=== PATIENT | female | born 1940 | race Caucasian/White ===

== ENCOUNTER 2018-01-07 23:31 | Emergency (ER) | payer MEDICARE, MEDICAID, SELFPAY ==
[2018-01-08] MEDS ORDERED: Sodium Chloride 0.9% 1,000 ML IV SCH (00:15)
--- NOTE | 2018-01-08 00:23 | EDM.PDOC ---
ED HPI GENERAL MEDICAL PROBLEM - General Chief Complaint: Gastrointestinal Problem Stated Complaint: DIFFICULTY BREATHING RIGHT LEG STINTS END OF OCTOBER Time Seen by Provider: 01/08/18 00:11 Source of Information: Reports: Patient History Limitations: Reports: No Limitations - History of Present Illness INITIAL COMMENTS - FREE TEXT/NARRATIVE: 77-year-old female presents to the ED due to difficulty swallowing. 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 She is not generating any saliva to aid her swallowing reflex. She complains of subjective sensation of shortness of breath. She is vague about any central chest pressure pain discomfort. She is currently on Plavix daily after having his multiple stents placed in her right leg including the posterior tibial artery to try and improve blood flow to her right leg which was was dealt developing gangrene of the toes. Patient has bilateral iliac and femoral stents as well. I.e. she has severe peripheral vascular disease and generalized atherosclerotic disease make her risk of myocardial infarction. 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 Still be contributing to dryness of her mouth. She has morphine tablets to use as well but hardly ever takes one. She states water does go down and does not seem to be getting stuck. She states she does have to watch very closely what she eats and the size of the food particles as they will get stuck in her food pipe otherwise. She does get occasional reflux symptoms. Onset: Gradual (Just worse today.) Duration: Chronic Location: Reports: Other (Trouble swallowing a subjective sensation of dyspnea.) Quality: Reports: Other (Trouble swallowing not able to make any saliva. Has severe scleroderma and seek syndrome) Severity: Moderate Improves with: Reports: None Worsens with: Reports: Other (Trying to swallow without water in her mouth.) Context: Denies: Activity, Exercise, Lifting, Sick Contact, Trauma, Other Associated Symptoms: Reports: Malaise, Shortness of Breath (Subjective shortness of breath but sats are 98-99% on room air.). 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: Other (see below) (Only her normal medications) - Related Data Allergies Allergy/AdvReac Type Severity Reaction Status Date / Time No Known Allergies Allergy Verified 01/07/18 23:52 Past Medical History HEENT History: Reports: Impaired Vision Other HEENT History: Wears glasses Cardiovascular History: Reports: Arrhythmia, Heart Failure, Heart Murmur Gastrointestinal History: Reports: Diverticulosis 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 Diagnosed at age 50) Dermatologic History: Reports: Scleroderma - Past Surgical History Musculoskeletal Surgical History: Reports: Amputation Social & Family History - Living Situation & Occupation Living situation: Reports: Single, , Alone Occupation: Retired ED ROS GENERAL - Review of Systems Review Of Systems: See Below Constitutional: Reports: Decreased Appetite, Other (Primary problem is difficulty swallowing.). 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 Denies: Hearing Loss, Nosebleed, Rhinitis, Sinus Problem, Throat Pain, Throat Swelling, Vertigo Respiratory: Reports: Shortness of Breath. Denies: Wheezing, Pleuritic Chest Pain, Cough, Sputum, Hemoptysis, Other Cardiovascular: Reports: Blood Pressure Problem, Dyspnea on Exertion, Other ( Has severe peripheral vascular disease.). Denies: Chest Pain (Seems to be more of a subjective shortness of breath.), Claudication, Edema, Lightheadedness, Orthopnea (Has systolic hypertension), Palpitations Endocrine: Reports: Fatigue GI/Abdominal: Reports: Other (Difficulty swallowing due to scleroderma involvement of her esophagus. She also has for the most part chronic loose stools or diarrhea. At present she is experiencing some degree of constipation likely from using Percocet tablets for pain in her foot.) : Reports: Frequency Musculoskeletal: Reports: Back Pain, Joint Pain (Knees hips low back and neck at times) Skin: Reports: Other (Scleroderma symptoms i.e. thickening of the skin particularly of her chin appreciated) Neurological: Reports: No Symptoms Psychiatric: Reports: No Symptoms ED EXAM, GI/ABD - Physical Exam Exam: See Below Exam Limited By: No Limitations General Appearance: Alert, WD/WN, Anxious (Moderately anxious.) Eyes: Bilateral: Normal Appearance Throat/Mouth: Normal Inspection, Normal Lips, Normal Teeth, Normal Oropharynx Head: Atraumatic, Normocephalic Neck: Supple, Non-Tender, Limited Range of Motion (Loss of ability to fully extend her neck), Other (Does have thickening of the skin over her chin and upper anterior neck particular submandibular area.). No: Lymphadenopathy (L), Lymphadenopathy (R) Respiratory/Chest: Lungs Clear (Mild tachypnea at rest 18/m. O2 sats are 90-99% on room air.), Normal Breath Sounds, No Accessory Muscle Use, Respiratory Distress Cardiovascular: Regular Rate, Rhythm, No Edema, No Gallop, Systolic Murmur (She has a grade 3 pansystolic ejection murmur best heard at the left lower sternal border compatible with aortic stenosis. She has a second murmur that radiates towards the left axilla compatible with mitral insufficiency graded at 2-3 out of 6.). No: Normal Peripheral Pulses GI/Abdominal Exam: Normal Bowel Sounds, Soft, Non-Tender, No Organomegaly, No Mass Back Exam: Other (Mild kyphosis thoracic spine) Extremities: Normal Range of Motion, Other (Missing second toe right foot. Both feet are very cool to touch. There are also very tender to touch. 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.) Psychiatric: Anxious Skin Exam: Warm, Dry, Intact, Normal Color, No Rash Course - Vital Signs Last Recorded V/S: Last Vital Signs Temp 36.6 C 01/07/18 23:52 Pulse 95 01/07/18 23:52 Resp 18 01/07/18 23:52 BP 171/52 H 01/07/18 23:52 Pulse Ox 98 01/07/18 23:52 - Orders/Labs/Meds Orders: Active Orders 24 hr Category Date Time Status Chest 1V Frontal [CR] Stat Exams 01/08/18 00:12 Taken Sodium Chloride 0.9% [Normal Saline] 1,000 ml Med 01/08/18 00:15 Active IV ASDIRECTED Medication Orders Sodium Chloride (Normal Saline) 1,000 mls @ 500 mls/hr IV ASDIRECTED MONALISA Last Admin: 01/08/18 00:36 Dose: 500 mls/hr Labs: Laboratory Tests 01/08/18 01/08/18 01/08/18 Range/Units 00:27 00:27 00:27 WBC 6.06 (3.98-10.04) K/mm3 RBC 4.63 (3.98-5.22) M/mm3 Hgb 13.5 (11.2-15.7) gm/L Hct 42.6 (34.1-44.9) % MCV 92.0 (79.4-94.8) fl MCH 29.2 (25.6-32.2) pg MCHC 31.7 L (32.2-35.5) g/dl RDW Std Deviation 52.5 H (36.4-46.3) fL Plt Count 212 (182-369) K/mm3 MPV 10.8 (9.4-12.3) fl Neutrophils % (Manual) 73 H (40-60) % Band Neutrophils % 1 (0-10) % Lymphocytes % (Manual) 21 (20-40) % Atypical Lymphs % 0 % Monocytes % (Manual) 3 (2-10) % Eosinophils % (Manual) 2 (0.7-5.8) % Basophils % (Manual) 0 L (0.1-1.2) Platelet Estimate Adequate RBC Morph Comment Normal Sodium 141 (136-145) mEq/L Potassium 3.8 (3.5-5.1) mEq/L Chloride 103 (98-107) mEq/L Carbon Dioxide 25 (21-32) mEq/L Anion Gap 16.8 H (5-15) BUN 14 (7-18) mg/dL Creatinine 1.0 (0.55-1.02) mg/dL Est Cr Clr Drug Dosing 34.91 mL/min Estimated GFR (MDRD) 54 (>60) mL/min BUN/Creatinine Ratio 14.0 (14-18) Glucose 168 H (83-115) mg/dL Calcium 9.9 (8.5-10.1) mg/dL Magnesium 2.0 (1.8-2.4) mg/dl Total Bilirubin 0.4 (0.2-1.0) mg/dL AST 25 (15-37) U/L ALT 19 (14-59) U/L Alkaline Phosphatase 86 (46-116) U/L CK-MB (CK-2) 29.8 H (0-3.6) ng/ml Troponin I < 0.017 (0.00-0.056) ng/mL NT-Pro-B Natriuret Pep 303 (0-450) pg/mL Total Protein 8.1 (6.4-8.2) g/dl Albumin 3.9 (3.4-5.0) g/dl Globulin 4.2 gm/dL Albumin/Globulin Ratio 0.9 L (1-2) Meds: Medications Generic Name Dose Route Start Last Admin Trade Name Freq PRN Reason Stop Dose Admin Sodium Chloride 1,000 mls @ 500 mls/hr 01/08/18 00:15 01/08/18 00:36 Normal Saline IV 500 mls/hr ASDIRECTED [facility] Administration - Radiology Interpretation Free Text/Narrative:: 77-year-old female presents to the ED with a primary complaint of subjective dyspnea and difficulty swallowing. Patient has scleroderma since age 50. She is showing signs of thickening of her chin and undersurface of the chin and has esophageal involvement by history alone with food getting stuck intermittently. She has a ialogogue at home but does not find it helpful. She finds herself constantly sipping water to try and aid swallowing. Again subjective sense of dyspnea but O2 sats are 98-99% on room air with respiratory of 16-18/m. Lungs are clear to auscultation. Is no doubt that she would have atherosclerotic disease involving her heart. She does not have any carotid bruits. She has severe valvular heart disease however clinically with grade 3/6 pansystolic murmur at the left sternal border compatible with aortic stenosis and second murmur referred to the left axilla suggestive of mitral insufficiency. Lungs sound clear and there is no subjective evidence of acute pulmonary edema. Plan chest x-ray to be done with routine labs. I'm going to give her normal saline 500 mils per hour IV to see if this alleviates some of her difficulty swallowing due to lack of ability to make saliva. - Re-Assessments/Exams Free Text/Narrative Re-Assessment/Exam: 01/08/18 01:04 portable chest x-ray is completely normal. Normal cardiac silhouette clear lung alexander. 01/08/18 01:29 Labs are back and reveal a normal white count at 6.06. She has 73 % neutrophils and 1% bands reported. Hemoglobin is 13.5 with hematocrit of 42.6. Platelet count is normal at 212,000. Sodium is 141 with a potassium of 3.8. Toward is 103 with a bicarbonate 25. Anion gap is mildly elevated at 16.8. BUN is 14 with a creatinine of 1.0. EGFR is 54. Glucose is 168. Calcium is 9.9. Magnesium is normal at 2.0. Liver function is normal. CK-MB fraction is markedly elevated at 29.8. Troponin I is less than 0.017. BNP is 303. Prominent are are labs up to 450. 01/08/18 01:47 Patient and daughter reassured about the findings of the labs. There is no evidence of congestive heart failure or coronary disease to account for her dyspnea which I believe is subjective. Chest such as dry mouth that she gets a sensation that she can't swallow and she associates this with shortness of breath. We have given her [place] lozenges to suck on and she thinks this may be helping somewhat. I'm going to complete a liter of IV fluids to see if this will alleviate some of her dry mouth as well. She is using increased doses of Percocet for leg pain yesterday which may be contributing to xerostomia as well. In the old days previous to use treatment of erythromycin 3 or 4 times a day to try and improve esophageal motility and this is perhaps something to be considered in the future. In the meantime I will place her in the direction of Xylitol agents --which are [id number]. I know there is a new one on the market but I can't remember the name. 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 This creates xerostomia which is severe dry mouth secondary to inability to make normal amounts of saliva. It is aggravated by medicine such as pain medicines that cut down on the ability to make saliva. You were checked out thoroughly in the emergency department make sure there was no involvement of your heart or evidence of heart failure to cause you to feel like he could not get a normal breath. X-ray was normal and labs revealed no evidence of heart or lung related illness. Primary problem is lack of ability to make saliva which makes it very difficult to try and swallow. You were treated with a liter of IV fluids in the ED hoping that this may improve your hydration status and able to make a little more saliva . The only other treatment options are medications containing Xylitol-- these medicines creates a lubricant for the mouth and try to help alleviate trouble swallowing. These medications are [id number] and should be available at any pharmacy or [facility]. - My Orders Last 24 Hours: My Active Orders 01/08/18 00:12 Chest 1V Frontal [CR] Stat 01/08/18 00:15 Sodium Chloride 0.9% [Normal Saline] 1,000 ml IV ASDIRECTED - Assessment/Plan Last 24 Hours: My Active Orders 01/08/18 00:12 Chest 1V Frontal [CR] Stat 01/08/18 00:15 Sodium Chloride 0.9% [Normal Saline] 1,000 ml IV ASDIRECTED
--- NOTE | 2018-01-10 06:52 | CR ---
Chest: Portable view of the chest was obtained. Comparison: Prior chest x-ray of 02/18/10. Heart is enlarged but felt to be accentuated from portable technique. Tortuous thoracic aorta is seen. Lungs are clear without acute parenchymal densities. Bony structures appear within normal limits for age. Impression: 1. Nothing acute is appreciated on portable chest x-ray. Diagnostic code #2
== END 2018-01-08 02:30 | disposition home or self-care (01) ==
LOC: JD.ED 23:31
DX: L94.0 Localized scleroderma [morphea] (principal); K11.7 Disturbances of salivary secretion; I10 Essential (primary) hypertension; E11.9 Type 2 diabetes mellitus without complications; Z95.5 Presence of coronary angioplasty implant and graft
CPT/HCPCS: 36415; 71045; 80053; 82553; 83735; 83880; 84484; 85007; 85027; 96360; 96361; 99284; J7040

== ENCOUNTER 2018-02-12 18:51 | Emergency (ER) | payer MEDICARE, MEDICAID, SELFPAY ==
[2018-02-12] MEDS ORDERED: Ondansetron 4 MG/2 ML SDV IVPUSH ONE (19:29)
[2018-02-12] MEDS ORDERED: HYDROmorphone 0.5 MG/0.5 ML SYRINGE IVPUSH ONE (19:29)
[2018-02-12] MEDS ORDERED: Dextrose 5%-0.9% NaCl 1,000 ML IV SCH (19:30)
--- NOTE | 2018-02-12 19:32 | EDM.PDOC ---
ED HPI GENERAL MEDICAL PROBLEM - General Chief Complaint: Respiratory Problem Stated Complaint: ISSUES WITH BREATHING WHEN SWALLOWING Time Seen by Provider: 02/12/18 19:27 Source of Information: Reports: Patient History Limitations: Reports: No Limitations - History of Present Illness INITIAL COMMENTS - FREE TEXT/NARRATIVE: 77-year-old female presents to the ED primarily because of xerostomia and difficulty swallowing. Feels like it's catching in the suprasternal notch area. 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 She has severe peripheral vascular disease and recently underwent stenting in her femoral artery as well as stenting in the popliteal artery and I believe a small stent placed in the posterior tibial artery to try and improve blood supply to her right foot which was showing signs of gangrene. She has had her great toe removed completely in 2 weeks ago they reoperated on the area and cleaned up the anastomosis site because it wasn't healing. It is currently being treated with a dry dressing daily or nurse. She has no fever or chills. She unfortunately has required increased dose of her morphine which is MS Contin twice daily every 12 hours. She is also using OxyContin 5/3/25 milligram tabs every 4 hours for pain relief in her great toe believe this is contributing to worsening of her xerostomia and continuing to her dysphagia. The last time she was in she had a liter of IV fluids and felt markedly improved. Onset: Today (Symptoms of dysphagia and xerostomia are worse today but they are chronic problems.), Unknown/Unsure Duration: Chronic (Just worse today.) Location: Reports: Other (Trouble swallowing and dysphagia with feeling of fluids and food getting stuck or grating choking sensation in the suprasternal notch area of the pharynx.) Quality: Reports: Other Severity: Moderate Improves with: Reports: None Worsens with: Reports: Other Context: Reports: Other (Patient has scleroderma with esophageal motility problems and dysphagia. She has xerostomia as well. Currently believe this is being aggravated by increased use of morphine and oxycodone for pain in her right foot due to gangrene in her right great toe which required resection while ago. She has severe peripheral vascular disease to her right lower extremity.). Denies: Activity (Aggravated by eating and drinking of course), Exercise, Lifting, Sick Contact, Trauma Associated Symptoms: Reports: No Other Symptoms, Other (Patient has been able to maintain her weight since I last reviewed her.). Denies: Confusion, Chest Pain, Cough, cough w sputum Treatments TALENT ACQUISITION ASSISTANT: Reports: Other (see below) (She takes MS Contin twice daily every 12 hours and Percocet tablets one or 2 every 4 hours for pain in her right foot.) - Related Data Allergies Allergy/AdvReac Type Severity Reaction Status Date / Time No Known Allergies Allergy Verified 02/12/18 19:06 Home Meds: Home Meds Simvastatin 20 mg PO BEDTIME 01/08/18 [History] Calcium Carbonate 500 mg PO BID 02/12/18 [History] Cevimeline HCl 30 mg PO TID 02/12/18 [History] Cholecalciferol (Vitamin D3) [Vitamin D3] 3,000 units PO DAILY 02/12/18 [History ] Clopidogrel [Plavix] 75 mg PO DAILY 02/12/18 [History] Dexlansoprazole [Dexilant] 60 mg PO DAILY 02/12/18 [History] Diltiazem HCl [Tiazac] 180 mg PO DAILY 02/12/18 [History] Feosol 200 mg PO DAILY 02/12/18 [History] Insulin Aspart [NovoLOG] 28 unit SQ QID 02/12/18 [History] Morphine Sulfate 15 mg PO BID 02/12/18 [History] Multivitamins with Iron [Daily Dioni with Iron] 1 tab PO DAILY 02/12/18 [History] Pregabalin [Lyrica] 50 mg PO TID 02/12/18 [History] Raloxifene [Evista] 60 mg PO DAILY 02/12/18 [History] Sennosides/Docusate Sodium [Senna-S] 2 tab PO BID PRN 02/12/18 [History] metFORMIN [Glucophage XR] 500 mg PO BID 02/12/18 [History] oxyCODONE HCl/Acetaminophen [Oxycodone-Acetaminophen 5-325] 1 - 2 tab PO Q4H PRN 02/12/18 [History] oxyCODONE HCl/Acetaminophen [Percocet 5-325 mg Tablet] 1 - 2 each PO Q4H PRN # 40 tablet 02/12/18 [Rx] Past Medical History HEENT History: Reports: Impaired Vision Other HEENT History: Wears glasses Cardiovascular History: Reports: Arrhythmia, Heart Failure, Heart Murmur, PVD ( Severe peripheral vascular disease with development of gangrene of her right great toe which required resection about 3 months ago. 2 weeks ago she had reevaluation and surgical debridement of the anastomotic site that broke down due to failure of the wound to heal. Wound is currently being dressed daily by home care nurse with a dry dressing.) Gastrointestinal History: Reports: Diverticulosis REHABILITATION COUNSELLOR History: Reports: Other Musculoskeletal History: Stents in R) leg Endocrine/Metabolic History: Reports: Diabetes, Type II Hematologic History: Reports: Anemia, Blood Transfusion(s) Immunologic History: Reports: Other (See Below) (Has severe scleroderma. Diagnosed at age 50) Dermatologic History: Reports: Scleroderma - Past Surgical History Musculoskeletal Surgical History: Reports: Amputation Social & Family History - Tobacco Use Smoking Status *Q: Never Smoker Second Hand Smoke Exposure: No - Caffeine Use Caffeine Use: Reports: Coffee - Recreational Drug Use Recreational Drug Use: No - Living Situation & Occupation Living situation: Reports: Single, , Alone Occupation: Retired [employer] [facility] [employer] [employer] [facility] - Review of Systems Review Of Systems: See Below Constitutional: Reports: Malaise, Weakness, Fatigue, Decreased Appetite, Weight Loss (She believes she is maintaining her weight.). Denies: Fever, Chills HEENT: Reports: Glasses (Dysphagia due to xerostomia and scleroderma with motility disorder of her esophagus.), Other Respiratory: Reports: Shortness of Breath (Gives her a subjective sensation of shortness of breath when the food pipe spasms in the suprasternal notch area.). Denies: Wheezing, Pleuritic Chest Pain, Cough, Sputum, Hemoptysis Cardiovascular: Reports: No Symptoms Endocrine: Reports: Fatigue GI/Abdominal: Reports: No Symptoms, Other (She states with the current stool softeners that she's on her her bowels are staying regular. 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 She has rest pain due to peripheral vascular disease primarily in the forefoot of the right side.) Skin: Reports: Other (Show signs of scleroderma in her hands.) Neurological: Reports: No Symptoms Psychiatric: Reports: No Symptoms Hematologic/Lymphatic: Reports: No Symptoms Immunologic: Reports: No Symptoms ED EXAM, GENERAL - Physical Exam Exam: See Below Exam Limited By: No Limitations General Appearance: Alert, WD/WN, Anxious (Mildly anxious. Doesn't lady.) Eye Exam: Bilateral Eye: Normal Inspection Throat/Mouth: Other (Oropharynx tongue are dry. The soft palate is also quite dry. Clinically she has xerostomia) Head: Atraumatic, Normocephalic Neck: Normal Inspection, Supple, Full Range of Motion. 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 She has evidence of recent surgery to the great toe with anastomosis at the MTP joint. Appears to be a lot of dried blood at the skin versus gangrene development. Sutures are still present in the wound. It is oozing some serous material on the lateral aspect of the wound. It is not showing any signs of infection dorsal foot or leg. She has wasting of the musculature in both lower extremities.) Neurological: Alert, Oriented, CN II-XII Intact, Normal Cognition, Normal Gait Psychiatric: Normal Affect, Normal Mood Skin Exam: Warm, Dry, Erythema (Restraint erythema the dorsal aspect of the right foot but no increased warmth or obvious signs of infection), Wound/ Incision (First MTP joint right foot), Other (Has a wound at the first MTP joint of her right foot where her toe was resected recently and then an anastomosis cleansed and resutured 2 weeks ago.) Course - Vital Signs Last Recorded V/S: Last Vital Signs Temp 37.3 C 02/12/18 19:04 Pulse 116 H 02/12/18 19:04 Resp 19 02/12/18 19:04 BP 187/77 H 02/12/18 19:04 Pulse Ox 94 L 02/12/18 19:04 - Orders/Labs/Meds Labs: Laboratory Tests 02/12/18 02/12/18 Range/Units 19:44 19:44 WBC 8.27 (3.98-10.04) K/mm3 RBC 4.04 (3.98-5.22) M/mm3 Hgb 11.7 (11.2-15.7) gm/L Hct 36.8 (34.1-44.9) % MCV 91.1 (79.4-94.8) fl MCH 29.0 (25.6-32.2) pg MCHC 31.8 L (32.2-35.5) g/dl RDW Std Deviation 50.4 H (36.4-46.3) fL Plt Count 259 (182-369) K/mm3 MPV 10.2 (9.4-12.3) fl Neutrophils % (Manual) 77 H (40-60) % Band Neutrophils % 0 (0-10) % Lymphocytes % (Manual) 13 L (20-40) % Atypical Lymphs % 0 % Monocytes % (Manual) 7 (2-10) % Eosinophils % (Manual) 3 (0.7-5.8) % Basophils % (Manual) 0 L (0.1-1.2) Platelet Estimate Adequate Plt Morphology Comment Normal RBC Morph Comment Normal Sodium 136 (136-145) mEq/L Potassium 4.1 (3.5-5.1) mEq/L Chloride 103 (98-107) mEq/L Carbon Dioxide 29 (21-32) mEq/L Anion Gap 8.1 (5-15) BUN 13 (7-18) mg/dL Creatinine 0.8 (0.55-1.02) mg/dL Est Cr Clr Drug Dosing 43.64 mL/min Estimated GFR (MDRD) > 60 (>60) mL/min BUN/Creatinine Ratio 16.3 (14-18) Glucose 129 H (83-115) mg/dL Calcium 9.8 (8.5-10.1) mg/dL Magnesium 1.8 (1.8-2.4) mg/dl Total Bilirubin 0.4 (0.2-1.0) mg/dL AST 21 (15-37) U/L ALT 14 (14-59) U/L Alkaline Phosphatase 71 (46-116) U/L Total Protein 7.3 (6.4-8.2) g/dl Albumin 3.3 L (3.4-5.0) g/dl Globulin 4.0 gm/dL Albumin/Globulin Ratio 0.8 L (1-2) Meds: Medications Discontinued Medications Generic Name Dose Route Start Last Admin Trade Name Freq PRN Reason Stop Dose Admin Hydromorphone HCl 0.5 mg 02/12/18 19:29 02/12/18 19:38 Dilaudid IVPUSH 02/12/18 19:30 0.5 mg ONETIME ONE Administration Dextrose/Sodium Chloride 1,000 mls @ 500 mls/hr 02/12/18 19:30 02/12/18 19:39 Dextrose 5%-Normal Saline IV 500 mls/hr ASDIRECTED MONALISA Administration Ondansetron HCl 4 mg 02/12/18 19:29 02/12/18 19:37 Zofran IVPUSH 02/12/18 19:30 4 mg ONETIME ONE Administration - Radiology Interpretation Free Text/Narrative:: 77-year-old female with known scleroderma presents to the ED with difficulty swallowing or dysphagia. This is mostly felt in the suprasternal notch of her anterior neck. Hematocrits food or fluid is seems to get stuck or cause a choking-like sensation in this area. She's had a chronically but it's worse the last few days. Of note she is having increased pain in her right great toe area where she underwent amputation of the right great toe due to development of gangrene. Patient has severe peripheral vascular disease and had stents placed in her right femoral right popliteal and right posterior tibial artery by interventional radiology 3 months ago. As well as she lost her great toe and had re-Agusto's surgery to clean the anastomosis and we suture it 2 weeks ago over the first MTP joint. The wound is being dressed daily with a dry dressing by home care nurse. Increased pain in the area she's been using her morphine twice daily and Percocet 5/325 mg every 4 hours for pain relief. This in turn I think is contributing to the xerostomia and dysphagia. Plan routine labs will be done. Ever liter of IV fluids will she is here's as they seem to help her previously. Much else to offer otherwise. - Re-Assessments/Exams Free Text/Narrative Re-Assessment/Exam: 02/12/18 21:11 Labs are back showing a normal white count at 8.27. 77% neutrophils no bands reported. Hemoglobin slightly low 11.7 with hematocrit of 36.8. Platelets count is normal 2 and 59,000. Sodium is 136 with a potassium of 4.1. Chloride 103 with a bicarbonate 29. Anion gap is 8.1 with a BUN of 13. Creatinine is normal at 0.8. GFR is greater than 60. Glucose is 129. Calcium is 9.8. Magnesium low normal at 1.8. Liver function normal. Albumin fraction slightly low at 3.3. 02/12/18 21:19 she still feeling like she is talking at times with swallowing. She is nearly completed liter of IV fluids. Sedation is thus far are negative particularly with any signs of active infection. I believe the MS Contin is the likely culprit to make her suddenly much worse again she really hasn't had any problems since I had seen her last when she was on morphine as well. Is 2 weeks postoperatively. She is having a lot of rest pain but I'm going to see if she' ll stop the MS Contin just use the oxycodone for pain relief and see if her dysphagia does not improve. Otherwise she is copy clean a rock and a hard place in terms of pain management versus not being able to swallow. Daughter is in attendance and understands the problems quite well. 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 Instructions: Dysphagia Referrals: Davin Khan MD [Primary Care Provider] - Forms: ED Department Discharge Additional Instructions: Evaluation the emergency room today in regards to development of trouble swallowing which we called dysphagia. This is due to a combination of problems one is underlying autoimmune disorder scleroderma. To is xerostomia which means inability to make adequate amounts of saliva which I believe is markedly worsened by the use of morphine recently for right foot pain management. Lab tests done today were all within normal limits showing no signs of any infective process. The recent surgery on her right great toe amputation site appears to be healing adequately. He received a liter of IV fluids in the ED in the hopes that this may help with irritability to swallow when you're well hydrated. It is my suggestion to discontinue the MS Contin for at least 3 or 4 days to see if this improved her ability to swallow. Take oxycodone tablets 5/ 325 mg one or 2 every 4-6 hours as needed for pain relief. Continue all other medications. Decision will have to be made in 3 or 4 days time as to whether or not she needs to resume the MS Contin due to uncontrolled pain the oxycodone is controlling pain well enough on its own. Follow-up with personal physician in 4- 5 days time to help make decisions in this regard if needed.
== END 2018-02-12 21:59 | disposition home or self-care (01) ==
LOC: JD.ED 18:51
DX: R13.10 Dysphagia, unspecified (principal); K11.7 Disturbances of salivary secretion; T50.995A Adverse effect of other drugs, medicaments and biological substances, initial encounter; L94.0 Localized scleroderma [morphea]; Z79.4 Long term (current) use of insulin; Z79.84 Long term (current) use of oral hypoglycemic drugs; Z79.899 Other long term (current) drug therapy
CPT/HCPCS: 36415; 80053; 83735; 85007; 85027; 96361; 96374; 96375; 99285; J1170; J2405; J7042; 99284

== ENCOUNTER 2023-12-07 20:19 | Emergency (ER) | payer OTHER, MEDICARE, MEDICAID ==
[2023-12-07 21:02] LABS: BASOPHILS PERCENT AUTO 0.3 % (0.0-1.0); EOSINOPHILS PERCENT AUTO 0.2 % (0.0-6.0); HEMATOCRIT 35.4 % (37.0-47.0); HEMOGLOBIN 11.5 gm/dl (12.0-16.0); IMMATURE GRAN ABSOLUTE AUTO 0.07 K/mm3 (0.00-0.05); IMMATURE GRAN PERCENT AUTO 0.6 % (0.0-0.4); LYMPHOCYTES ABSOLUTE AUTO 0.6 K/mm3 (1.0-4.8); LYMPHOCYTES PERCENT AUTO 5.1 % (24.0-44.0); MEAN CORPUSCULAR HEMOGLOBIN 29.6 pg (28.0-32.0); MEAN CORPUSCULAR HGB CONC 32.5 g/dl (32.0-36.0); MEAN CORPUSCULAR VOLUME 91.2 fl (83.0-99.0); MEAN PLATELET VOLUME 10.7 fl (9.4-12.3); MONOCYTES ABSOLUTE AUTO 0.7 K/mm3 (0.0-0.8); MONOCYTES PERCENT AUTO 6.4 % (0.0-8.0); NEUTROPHILS ABSOLUTE AUTO 9.7 K/mm3 (1.8-7.7); NEUTROPHILS PERCENT AUTO 87.4 % (41.0-71.0); PLATELET COUNT,PLT 173 K/mm3 (150-400); RED BLOOD CELL COUNT 3.88 M/mm3 (4.10-5.30); WHITE BLOOD CELL COUNT,WBC 11.08 K/mm3 (3.9-11.3)
[2023-12-07 21:21] LABS: A/G RATIO 1.1 (1-2); ALBUMIN 3.5 g/dl (3.4-5.0); ANION GAP 14.7 (5-15); BILIRUBIN TOTAL 0.6 mg/dL (0.2-1.0); BUN/CREATININE RATIO 21.1 (14-18); CALCIUM 9.7 mg/dL (8.5-10.1); CREATININE 0.9 mg/dL (0.55-1.02); EST CRCL DRUG DOSING (CG) 33.06 mL/min; POTASSIUM,K 3.7 mEq/L (3.5-5.1); PROTEIN TOTAL,TP 6.6 g/dl (6.4-8.2)
[2023-12-07 21:43] LABS: APPEARANCE,URINE CLEAR (Clear); BILIRUBIN,URINE NEGATIVE (Negative); COLOR,URINE YELLOW (Yellow); GLUCOSE,URINE TRACE (Negative); KETONES,URINE NEGATIVE (Negative); LEUKOCYTE ESTERASE,URINE TRACE (Negative); NITRITE,URINE NEGATIVE (Negative); OCCULT BLOOD,URINE NEGATIVE (Negative); PH,URINE 7.5 (5.0-8.0); PROTEIN,URINE TRACE (Negative); UROBILINOGEN,URINE 0.2 (0.2-1.0)
[2023-12-07 22:09] LABS: BACTERIA,URINE MANY /hpf (FEW); MUCUS,URINE FEW /hpf (FEW); RBC,URINE 0-5 /hpf (0-5)
[2023-12-07] MEDS ORDERED: Naloxone 0.4 MG/ML SDV IVPUSH PRN (22:31)
[2023-12-07] MEDS: Morphine 4 MG/ML Syringe IVPUSH ONE (22:52)
[2023-12-07] MEDS: Sodium Chloride 0.9% 10 ML Syringe FLUSH PRN (22:53)
== END 2023-12-07 23:12 ==
LOC: JD.ED 20:19
DX: S72.141A Displaced intertrochanteric fracture of right femur, initial encounter for closed fracture (principal); S88.111A Complete traumatic amputation at level between knee and ankle, right lower leg, initial encounter; E11.9 Type 2 diabetes mellitus without complications; G89.4 Chronic pain syndrome; Z79.899 Other long term (current) drug therapy; Z79.02 Long term (current) use of antithrombotics/antiplatelets; Z79.84 Long term (current) use of oral hypoglycemic drugs; Z79.4 Long term (current) use of insulin; W01.198A Fall on same level from slipping, tripping and stumbling with subsequent striking against other object, initial encounter; Y93.89 Activity, other specified
CPT/HCPCS: 36415; 70450; 70450-26; 72125; 72125-26; 73552-26-RT; 73552-RT; 80053; 81001; 85025; 96374; 99285-25; J2270; J3490

== ENCOUNTER 2025-04-04 10:26 | Inpatient (IN) | payer OTHER, MEDICAID ==
[2025-04-04] MEDS ORDERED: Sodium Chloride 0.9% 10 ML Syringe FLUSH PRN (10:45)
[2025-04-04 10:59] LABS: APPEARANCE,URINE CLOUDY (Clear); GLUCOSE,URINE 2+ (Negative); OCCULT BLOOD,URINE TRACE-INTACT (Negative)
[2025-04-04 11:26] LABS: BASOPHILS ABSOLUTE AUTO 0.0 K/mm3 (0.0-0.2); BASOPHILS PERCENT AUTO 0.3 % (0.0-1.0); EOSINOPHILS ABSOLUTE AUTO 0.0 K/mm3 (0.0-0.4); EOSINOPHILS PERCENT AUTO 0.1 % (0.0-6.0); IMMATURE GRAN ABSOLUTE AUTO 0.07 K/mm3 (0.00-0.05); IMMATURE GRAN PERCENT AUTO 0.5 % (0.0-0.4); LYMPHOCYTES ABSOLUTE AUTO 0.7 K/mm3 (1.0-4.8); LYMPHOCYTES PERCENT AUTO 5.2 % (24.0-44.0); MEAN PLATELET VOLUME 10.6 fl (9.4-12.3); MONOCYTES ABSOLUTE AUTO 0.7 K/mm3 (0.0-0.8); MONOCYTES PERCENT AUTO 5.5 % (0.0-8.0); NEUTROPHILS ABSOLUTE AUTO 12.0 K/mm3 (1.8-7.7); NEUTROPHILS PERCENT AUTO 88.4 % (41.0-71.0); NRBC ABSOLUTE 0.00 (0.00-0.02); NRBC PERCENT 0.0 % (0.0-0.2); PLATELET COUNT,PLT 198 K/mm3 (150-400); RED BLOOD CELL COUNT 3.70 M/mm3 (4.10-5.30); WHITE BLOOD CELL COUNT,WBC 13.51 K/mm3 (3.9-11.3)
[2025-04-04 11:47] LABS: A/G RATIO 0.8 (1-2); ALANINE AMINOTRANSFERASE,ALT 17.0 U/L (14-59); ASPARTATE AMNIOTRANSFERASE,AST 22.0 U/L (15-37); BILIRUBIN TOTAL 0.5 mg/dL (0.2-1.0); BLOOD UREA NITROGEN,BUN 23.0 mg/dL (7-18); CARBON DIOXIDE,CO2 21.0 mEq/L (21-32); CHLORIDE,CL 102.0 mEq/L (98-107); CREATININE 1.5 mg/dL (0.55-1.02); EST CRCL DRUG DOSING (CG) 16.56 mL/min; ESTIMATED GFR 35.0 mL/min (>60); GLUCOSE RANDOM 202.0 mg/dL (70-99); POTASSIUM,K 4.5 mEq/L (3.5-5.1); PROTEIN TOTAL,TP 6.6 g/dl (6.4-8.2); SODIUM,NA 134.0 mEq/L (136-145)
[2025-04-04 12:00] LABS: LACTIC ACID 2.7 mmol/L (0.4-2.0)
[2025-04-04] MEDS ORDERED: 50% Dextrose in Water 50 ML Syringe IVPUSH PRN (12:45)
[2025-04-04] MEDS: cefTRIAXone 1 GM in Water For Injection, Sterile 10 ML IVPUSH ONE (13:19)
[2025-04-04] MEDS ORDERED: Ondansetron 4 MG/2 ML SDV IV PRN (13:47)
[2025-04-04] MEDS ORDERED: Sennosides/Docusate Sodium 50-8.6 MG Tab PO PRN (15:20)
[2025-04-04] MEDS: Insulin Lispro 100 Unit/ML 3 ML KwikPen SUBCUT SCH (17:29)
[2025-04-04] MEDS ORDERED: CEVIMELINE HCL 30 MG PO SCH (21:00)
[2025-04-05 05:54] LABS: BASOPHILS ABSOLUTE AUTO 0.0 K/mm3 (0.0-0.2); BASOPHILS PERCENT AUTO 0.4 % (0.0-1.0); EOSINOPHILS ABSOLUTE AUTO 0.0 K/mm3 (0.0-0.4); EOSINOPHILS PERCENT AUTO 0.7 % (0.0-6.0); IMMATURE GRAN ABSOLUTE AUTO 0.02 K/mm3 (0.00-0.05); IMMATURE GRAN PERCENT AUTO 0.4 % (0.0-0.4); LYMPHOCYTES ABSOLUTE AUTO 0.7 K/mm3 (1.0-4.8); LYMPHOCYTES PERCENT AUTO 12.5 % (24.0-44.0); MEAN PLATELET VOLUME 10.2 fl (9.4-12.3); MONOCYTES ABSOLUTE AUTO 0.5 K/mm3 (0.0-0.8); MONOCYTES PERCENT AUTO 8.1 % (0.0-8.0); NEUTROPHILS ABSOLUTE AUTO 4.4 K/mm3 (1.8-7.7); NEUTROPHILS PERCENT AUTO 77.9 % (41.0-71.0); NRBC ABSOLUTE 0.00 (0.00-0.02); NRBC PERCENT 0.0 % (0.0-0.2); PLATELET COUNT,PLT 162 K/mm3 (150-400); RED BLOOD CELL COUNT 3.87 M/mm3 (4.10-5.30); WHITE BLOOD CELL COUNT,WBC 5.68 K/mm3 (3.9-11.3)
[2025-04-05 06:30] LABS: A/G RATIO 0.7 (1-2); ALANINE AMINOTRANSFERASE,ALT 14.0 U/L (14-59); ASPARTATE AMNIOTRANSFERASE,AST 19.0 U/L (15-37); BILIRUBIN TOTAL 0.3 mg/dL (0.2-1.0); BLOOD UREA NITROGEN,BUN 19.0 mg/dL (7-18); CARBON DIOXIDE,CO2 21.0 mEq/L (21-32); CHLORIDE,CL 108.0 mEq/L (98-107); CREATININE 1.2 mg/dL (0.55-1.02); EST CRCL DRUG DOSING (CG) 21.66 mL/min; ESTIMATED GFR 45.0 mL/min (>60); GLUCOSE RANDOM 135.0 mg/dL (70-99); POTASSIUM,K 3.9 mEq/L (3.5-5.1); PROTEIN TOTAL,TP 6.4 g/dl (6.4-8.2); SODIUM,NA 141.0 mEq/L (136-145)
[2025-04-05] MEDS ORDERED: Diltiazem 180 MG Cap.CD PO SCH (09:00)
[2025-04-05] MEDS ORDERED: DEXLANSOPRAZOLE 30 MG PO SCH (09:00)
[2025-04-05] MEDS: cefTRIAXone 1 GM in Water For Injection, Sterile 10 ML IVPUSH SCH (13:22)
[2025-04-05] MEDS: Acetaminophen/oxyCODONE 325-5 MG Tab PO PRN (20:43)
[2025-04-06 05:59] LABS: BASOPHILS ABSOLUTE AUTO 0.0 K/mm3 (0.0-0.2); BASOPHILS PERCENT AUTO 0.3 % (0.0-1.0); EOSINOPHILS ABSOLUTE AUTO 0.1 K/mm3 (0.0-0.4); EOSINOPHILS PERCENT AUTO 1.2 % (0.0-6.0); IMMATURE GRAN ABSOLUTE AUTO 0.02 K/mm3 (0.00-0.05); IMMATURE GRAN PERCENT AUTO 0.3 % (0.0-0.4); LYMPHOCYTES ABSOLUTE AUTO 0.7 K/mm3 (1.0-4.8); LYMPHOCYTES PERCENT AUTO 11.1 % (24.0-44.0); MEAN PLATELET VOLUME 10.4 fl (9.4-12.3); MONOCYTES ABSOLUTE AUTO 0.4 K/mm3 (0.0-0.8); MONOCYTES PERCENT AUTO 6.6 % (0.0-8.0); NEUTROPHILS ABSOLUTE AUTO 4.8 K/mm3 (1.8-7.7); NEUTROPHILS PERCENT AUTO 80.5 % (41.0-71.0); NRBC ABSOLUTE 0.00 (0.00-0.02); NRBC PERCENT 0.0 % (0.0-0.2); PLATELET COUNT,PLT 159 K/mm3 (150-400); RED BLOOD CELL COUNT 4.16 M/mm3 (4.10-5.30); WHITE BLOOD CELL COUNT,WBC 5.93 K/mm3 (3.9-11.3)
[2025-04-06 06:21] LABS: A/G RATIO 0.7 (1-2); ALANINE AMINOTRANSFERASE,ALT 12.0 U/L (14-59); ASPARTATE AMNIOTRANSFERASE,AST 19.0 U/L (15-37); BILIRUBIN TOTAL 0.3 mg/dL (0.2-1.0); BLOOD UREA NITROGEN,BUN 18.0 mg/dL (7-18); CARBON DIOXIDE,CO2 24.0 mEq/L (21-32); CHLORIDE,CL 108.0 mEq/L (98-107); CREATININE 1.1 mg/dL (0.55-1.02); EST CRCL DRUG DOSING (CG) 23.75 mL/min; ESTIMATED GFR 50.0 mL/min (>60); GLUCOSE RANDOM 142.0 mg/dL (70-99); POTASSIUM,K 3.9 mEq/L (3.5-5.1); PROTEIN TOTAL,TP 6.5 g/dl (6.4-8.2); SODIUM,NA 141.0 mEq/L (136-145)
== END 2025-04-06 12:40 | disposition home or self-care (01) | DRG 872 ==
LOC: JD.ED 10:26 → JD.MS 12:43
PROVIDERS: ADMIT Family Medicine; ATTEND Family Medicine
DX: A41.9 Sepsis, unspecified organism (principal); N39.0 Urinary tract infection, site not specified; N17.9 Acute kidney failure, unspecified; G93.40 Encephalopathy, unspecified; Z66 Do not resuscitate; E87.20 Acidosis, unspecified; R65.20 Severe sepsis without septic shock; H54.7 Unspecified visual loss; I50.9 Heart failure, unspecified; E88.09 Other disorders of plasma-protein metabolism, not elsewhere classified; E11.9 Type 2 diabetes mellitus without complications; D64.9 Anemia, unspecified; G89.29 Other chronic pain; Z98.890 Other specified postprocedural states; Z79.899 Other long term (current) drug therapy; Z79.84 Long term (current) use of oral hypoglycemic drugs; Z79.4 Long term (current) use of insulin
CPT/HCPCS: 36415; 80053; 81001; 82947; 83605; 85025; 87040; 87086; 99285; A9270-GY; J0696; J1650; J7030